=== PATIENT | male | born 1975 | race Caucasian/White ===

== ENCOUNTER 2019-10-20 12:40 | Inpatient (IN) ==
[2019-10-20 13:12] LABS: Basophils # 0.1 K/mcL (0.0-0.2); Basophils % 1.1 %; Eosinophils # 0.2 K/mcL (0.0-0.6); Eosinophils % 3.4 %; Hematocrit 41.1 % (37.5-50.1); Hemoglobin 13.3 g/dL (12.9-16.9); Immature Granulocytes % 1.7 % (0-4); Lymphocytes # 1.2 K/mcL (0.6-4.6); Mean Corpuscular HGB Conc 32.4 g/dL (31.6-35.5); Mean Corpuscular Hemoglobin 28.6 pg (28.0-33.3); Mean Corpuscular Volume 88.4 fL (83.0-100.0); Mean Platelet Volume 9.3 fL (9.4-12.4); Monocytes # 0.5 K/mcL (0.0-1.3); Monocytes % 7.3 %; Neutrophils # 4.4 K/mcL (1.6-8.9); Platelet Count 208 K/mcL (140-400); Red Blood Count 4.65 M/mcL (4.19-5.50); Red Cell Distribution Width 13.8 % (11.5-14.5); Segmented Neutrophils % 68.5 %; White Blood Count 6.4 K/mcL (4.3-11.1)
[2019-10-20 13:28] LABS: Bilirubin,Urine Negative (Negative); Blood,Urine Negative (Negative); Clarity,Urine Clear (Clear); Color,Urine Light-Yellow (Yellow); Glucose,Urine (UA) 100 mg/dL (Normal); Ketones,Urine Negative (Negative); Leukocyte Esterase,Urine Negative (Negative); Mucus,Urine Few per lpf (None-Few); Nitrite,Urine Negative (Negative); Protein,Urine 30 mg/dL (Neg-Trace); RBC,Urine 0-3 per hpf (0-3); Specific Gravity,Urine 1.026 (1.010-1.025); Squamous Epithelial Cell,Urine Few per hpf (None-Few); Urobilinogen,Urine Normal (Normal); WBC,Urine 0-3 per hpf (0-3)
[2019-10-20 13:38] LABS: Amphetamine Screen,Urine Negative ng/mL (Cutoff=1000); Barbiturate Screen,Urine Negative ng/mL (Cutoff=200); Benzodiazepines Screen,Urine Negative ng/mL (Cutoff=200); Cannabinoid Screen,Urine Negative ng/mL (Cutoff = 50); Cocaine Screen,Urine Negative ng/mL (Cutoff= 300); Opiate Screen,Urine Negative ng/mL (Cutoff=300); Phencyclidine Screen,Urine Negative ng/mL (Cutoff=25)
[2019-10-20 13:42] LABS: Estimated Average Glucose 240 mg/dl
[2019-10-20 13:47] LABS: Acetaminophen < 10 mcg/mL (10-20); BUN/Creatinine Ratio 18 (6-26); Blood Urea Nitrogen 20 mg/dL (6-20); Calcium 9.1 mg/dL (8.6-10.3); Carbon Dioxide 28 mEq/L (23-29); Chloride 101 mEq/L (98-107); Chol/HDL Ratio 3.7 (0-4.9); Cholesterol 122 mg/dL (< 200); Ethanol < 10 mg/dL (Less than 10); Glucose 178 mg/dL (70-105); HDL Cholesterol 33 mg/dL (40-59); LDL Cholesterol,Calculated 45 mg/dL (< 100); Osmolality,Calculated 289 (280-300); Potassium 3.7 mEq/L (3.5-5.1); Salicylate < 2.5 mg/dL (15.0-30.0); Sodium 136 mEq/L (136-145); Triglycerides 221 mg/dL (< 150); eGFR For African Americans > 60 (> 60); eGFR For Non-African Americans > 60 (> 60)
[2019-10-20] MEDS ORDERED: MOM Conc 10 ML UD.LIQ PO PRN (15:00)
[2019-10-20] MEDS ORDERED: haloperidoL 5 MG TABLET PO PRN (15:00)
[2019-10-20] MEDS ORDERED: Haloperidol Lactate 5 MG/ML VIAL IM PRN (15:00)
[2019-10-20] MEDS ORDERED: Mag Hydrox/Al Hydrox/Simeth 30 ML UDC PO PRN (15:00)
[2019-10-20] MEDS ORDERED: *HR* LORazepam 2 MG/ML VIAL IM PRN (15:00)
[2019-10-20] MEDS ORDERED: *HR* LORazepam 1 MG TABLET PO PRN (15:00)
[2019-10-20 15:37] LABS: Thyroid Stimulating Hormone 4.194 mcIU/mL (0.340-5.600)
[2019-10-20] MEDS: Acetaminophen 325 MG TABLET PO PRN (16:14)
[2019-10-20] MEDS ORDERED: *HR* Dextrose 50 % in Water (Vial) 50 ML VIAL IVP PRN (17:06)
[2019-10-20] MEDS ORDERED: D5% in Water 1,000 ML IVC PRN (17:06)
[2019-10-20] MEDS ORDERED: Dextrose Gel 15 GM/37.5 ML TUBE PO PRN ×4 (17:06→17:16)
[2019-10-20] MEDS ORDERED: NON-FORMULARY MEDICATION 1 EACH EACH (Insulin Aspart [Novolog Flexpen] 15 UNIT) SQ SCH (18:00)
[2019-10-20] MEDS: *HR* Metformin 500 MG TABLET PO SCH (21:22)
[2019-10-20] MEDS: Insulin DETEMIR 100 UNIT/ML X5UNITS SQ SCH (21:23)
[2019-10-21] MEDS: hydrOXYzine pamoate 25 MG CAPSULE PO PRN ×2 (01:33→21:06)
[2019-10-21] MEDS: traZODone 50 MG TABLET PO PRN ×2 (01:33→21:06)
[2019-10-21] MEDS: Acetaminophen 325 MG TABLET PO PRN (06:38)
[2019-10-21] MEDS: ARIPiprazole 10 MG TABLET PO SCH (08:39)
[2019-10-21] MEDS: amLODIPine 5 MG TABLET PO SCH (08:40)
[2019-10-21] MEDS: lamoTRIgine 100 MG TABLET PO SCH (08:40)
[2019-10-21] MEDS: Multivit/Ca/Min/Fe/FA 1 TAB TABLET PO SCH (08:40)
[2019-10-21] MEDS: *HR* Metformin 500 MG TABLET PO SCH ×2 (08:40→21:07)
[2019-10-21] MEDS: Metoprolol XL (24 HR) Succ 25 MG TAB.ER.24H PO SCH (08:40)
[2019-10-21] MEDS: BuPROPion XL (24 HR) 150 MG TABLET PO SCH (08:41)
[2019-10-21] MEDS: Insulin LISPRO 300 UNITS/3 ML VIAL SQ SCH ×3 (08:47→16:43)
[2019-10-21] MEDS ORDERED: BuPROPion XL (24 HR) 150 MG TABLET PO SCH (09:00)
[2019-10-21] MEDS: Ibuprofen 400 MG TABLET PO PRN (14:20)
[2019-10-21] MEDS: tiZANidine 4 MG TABLET PO SCH ×2 (17:07→21:17)
[2019-10-21] MEDS: Insulin DETEMIR 100 UNIT/ML X5UNITS SQ SCH (21:07)
[2019-10-22] MEDS: Ibuprofen 400 MG TABLET PO PRN ×2 (02:01→11:42)
[2019-10-22] MEDS: Insulin LISPRO 300 UNITS/3 ML VIAL SQ SCH ×3 (08:06→16:33)
[2019-10-22] MEDS: Multivit/Ca/Min/Fe/FA 1 TAB TABLET PO SCH (08:25)
[2019-10-22] MEDS: ARIPiprazole 10 MG TABLET PO SCH (08:26)
[2019-10-22] MEDS: Metoprolol XL (24 HR) Succ 25 MG TAB.ER.24H PO SCH (08:26)
[2019-10-22] MEDS: BuPROPion XL (24 HR) 150 MG TABLET PO SCH (08:26)
[2019-10-22] MEDS: *HR* Metformin 500 MG TABLET PO SCH ×2 (08:27→20:31)
[2019-10-22] MEDS: lamoTRIgine 100 MG TABLET PO SCH (08:28)
[2019-10-22] MEDS: amLODIPine 5 MG TABLET PO SCH (08:29)
[2019-10-22] MEDS: tiZANidine 4 MG TABLET PO SCH ×3 (08:32→20:30)
[2019-10-22] MEDS: traZODone 50 MG TABLET PO PRN (20:31)
[2019-10-22] MEDS: Insulin DETEMIR 100 UNIT/ML X5UNITS SQ SCH (20:31)
[2019-10-23] MEDS: Insulin LISPRO 300 UNITS/3 ML VIAL SQ SCH ×3 (08:09→16:32)
[2019-10-23] MEDS: ARIPiprazole 10 MG TABLET PO SCH (08:51)
[2019-10-23] MEDS: Multivit/Ca/Min/Fe/FA 1 TAB TABLET PO SCH (08:52)
[2019-10-23] MEDS: lamoTRIgine 100 MG TABLET PO SCH (08:53)
[2019-10-23] MEDS: Metoprolol XL (24 HR) Succ 25 MG TAB.ER.24H PO SCH (08:53)
[2019-10-23] MEDS: *HR* Metformin 500 MG TABLET PO SCH ×2 (08:54→21:54)
[2019-10-23] MEDS: amLODIPine 5 MG TABLET PO SCH (08:55)
[2019-10-23] MEDS: BuPROPion XL (24 HR) 150 MG TABLET PO SCH (09:01)
[2019-10-23] MEDS: tiZANidine 4 MG TABLET PO SCH ×3 (09:02→21:55)
[2019-10-23] MEDS: Ibuprofen 400 MG TABLET PO PRN (17:05)
[2019-10-23] MEDS: traZODone 50 MG TABLET PO PRN (21:54)
[2019-10-23] MEDS: hydrOXYzine pamoate 25 MG CAPSULE PO PRN (21:55)
[2019-10-23] MEDS: Insulin DETEMIR 100 UNIT/ML X5UNITS SQ SCH (21:56)
[2019-10-24] MEDS: Insulin LISPRO 300 UNITS/3 ML VIAL SQ SCH (08:20)
[2019-10-24] MEDS: tiZANidine 4 MG TABLET PO SCH (08:25)
[2019-10-24] MEDS: ARIPiprazole 10 MG TABLET PO SCH (08:25)
[2019-10-24] MEDS: amLODIPine 5 MG TABLET PO SCH (08:26)
[2019-10-24] MEDS: Multivit/Ca/Min/Fe/FA 1 TAB TABLET PO SCH (08:26)
[2019-10-24] MEDS: BuPROPion XL (24 HR) 150 MG TABLET PO SCH (08:26)
[2019-10-24] MEDS: *HR* Metformin 500 MG TABLET PO SCH (08:27)
[2019-10-24] MEDS: lamoTRIgine 100 MG TABLET PO SCH (08:30)
[2019-10-24] MEDS: Metoprolol XL (24 HR) Succ 25 MG TAB.ER.24H PO SCH (08:30)
[2019-10-24 08:36] VITALS: BP 131/97
[2019-10-26] MEDS ORDERED: (Dulaglutide [Trulicity] 1.5 MG) SQ SCH (09:00)
== END 2019-10-24 10:40 | disposition home or self-care (01) | DRG 885 ==
LOC: EMEROOARM 12:40 → 1ANU 14:56
PROVIDERS: ADMIT Psychiatry & Neurology Psychiatry; ATTEND Psychiatry & Neurology Psychiatry

== ENCOUNTER 2020-03-28 05:05 | Observation (INO) ==
[2020-03-28] MEDS ORDERED: Naloxone 0.4 MG/ML INJ IVP PRN (09:45)
[2020-03-28] MEDS ORDERED: Azithromycin 500 MG in 0.9 % Sodium Chloride 250 ML IVPB SCH (13:00)
[2020-03-28] MEDS ORDERED: cefTRIAXone 2,000 MG in Water for inj. (sterile) 10 ML IVP SCH (13:00)
[2020-03-28] MEDS ORDERED: D5% in Water 1,000 ML IVC PRN (13:03)
[2020-03-28] MEDS ORDERED: *HR* Dextrose 50 % in Water (Vial) 50 ML VIAL IVP PRN (13:03)
[2020-03-28] MEDS ORDERED: Dextrose Gel 15 GM/37.5 ML TUBE PO PRN ×2 (13:03)
[2020-03-28] MEDS: Insulin LISPRO 300 UNITS/3 ML VIAL SUBQ SCH ×2 (14:01→16:25)
[2020-03-28] MEDS ORDERED: Acetaminophen 325 MG TABLET PO PRN (18:18)
[2020-03-28] MEDS ORDERED: *HR* HYDROcodone/Acet 5/325 mg TABLET PO PRN (18:18)
[2020-03-28] MEDS ORDERED: Insulin LISPRO 300 UNITS/3 ML VIAL SUBQ SCH (21:00)
[2020-03-29 02:33] LABS: Basophils % 0.3 %; Eosinophils % 0.1 %; Hematocrit 37.1 % (37.5-50.1); Hemoglobin 12.3 g/dL (12.9-16.9); Immature Granulocytes % 0.7 % (0-4); Lymphocytes # 0.8 K/mcL (0.6-4.6); Lymphocytes % 6.8 %; Mean Corpuscular HGB Conc 33.2 g/dL (31.6-35.5); Mean Corpuscular Hemoglobin 29.5 pg (28.0-33.3); Mean Platelet Volume 9.2 fL (9.4-12.4); Monocytes # 0.6 K/mcL (0.0-1.3); Monocytes % 5.2 %; Neutrophils # 9.7 K/mcL (1.6-8.9); Platelet Count 194 K/mcL (140-400); Red Blood Count 4.17 M/mcL (4.19-5.50); Red Cell Distribution Width 13.1 % (11.5-14.5); Segmented Neutrophils % 86.9 %; White Blood Count 11.2 K/mcL (4.3-11.1)
[2020-03-29 02:53] LABS: BUN/Creatinine Ratio 21 (6-26); Blood Urea Nitrogen 19 mg/dL (6-20); Calcium 9.1 mg/dL (8.6-10.3); Carbon Dioxide 27 mEq/L (23-29); Chloride 101 mEq/L (98-107); Glucose 182 mg/dL (70-105); Osmolality,Calculated 289 (280-300); Potassium 3.7 mEq/L (3.5-5.1); Sodium 136 mEq/L (136-145); eGFR For African Americans > 60 (> 60); eGFR For Non-African Americans > 60 (> 60)
[2020-03-29] MEDS ORDERED: *HR* Enoxaparin 40 MG/0.4 ML SYRINGE SQ SCH (06:00)
[2020-03-29] MEDS: Insulin LISPRO 300 UNITS/3 ML VIAL SUBQ SCH ×2 (08:04→11:51)
[2020-03-29] MEDS ORDERED: Azithromycin 500 MG in 0.9 % Sodium Chloride 250 ML IVPB SCH (09:00)
[2020-03-29] MEDS ORDERED: cefTRIAXone 2,000 MG in Water for inj. (sterile) 20 ML IVP SCH (09:00)
[2020-03-29] MEDS ORDERED: cefTRIAXone 2,000 MG in Water for inj. (sterile) 10 ML IVP SCH (09:00)
[2020-03-29 10:40] VITALS: BP 145/81
== END 2020-03-29 15:30 | disposition home or self-care (01) ==
LOC: 2NENU
PROVIDERS: ADMIT Internal Medicine; ATTEND Internal Medicine